=== PATIENT | female | born 1945 | race Caucasian/White ===

== ENCOUNTER 2023-04-15 16:00 | Outpatient (CLI) | payer MEDICARE | END 2023-04-15 16:01 | disposition home or self-care (01) | LOC: SLEEPLAB 16:00 | PROVIDERS: ATTEND Family Medicine | DX: G47.33 Obstructive sleep apnea (adult) (pediatric) (principal); R06.83 Snoring; R09.89 Other specified symptoms and signs involving the circulatory and respiratory systems; R53.83 Other fatigue | CPT/HCPCS: 95800 ==